=== PATIENT | male | born 1985 | race Caucasian/White ===

== ENCOUNTER 2017-02-12 15:17 | Emergency (ER) | payer SELFPAY ==
[~2017-02-12 15:17] MED LIST: Iopamidol 370 76% 100 ML VIAL ONE
[2017-02-12] MEDS ORDERED: Ondansetron HCl/PF 4 MG/2 ML Vial ONE (15:27)
[2017-02-12] MEDS ORDERED: Ketorolac Tromethamine 30 MG/ML VIAL ONE (15:27)
[2017-02-12 15:42] LABS: #Basophils 0.1 thou/uL (0.0-0.2); #Eosinphils 0.1 thou/uL (0.0-0.7); #Lymphocytes 2.1 thou/uL (1.20-3.40); #Monocytes 0.7 thou/uL (0.11-0.59); #Neutrophils 7.5 thou/uL (1.40-6.50); %Basophils 0.5 % (0.0-1.0); %Eosinophils 1.2 % (0.0-10.0); %Lymphocytes 19.5 % (21.0-51.0); %Monocytes 7.1 % (0.0-10.0); %Neutrophils 71.7 % (42.0-75.0); Mean Corpuscular HGB CONC 35.7 g/dL (32.0-36.0); Mean Corpuscular Hemoglobin 30.7 pg (27.0-31.0); Mean Corpuscular Volume 86.1 fl (80.0-94.0); Mean Platelet Volume 9.4 fL (7.4-10.4); Platelet Count 223 thou/uL (130-400); Red Blood Cell (RBC) Count 4.57 mill/uL (4.70-6.10); White Blood Cell (WBC) Count 10.5 thou/uL (4.8-10.8)
[2017-02-12 16:00] LABS: ALT (SGPT) 11 U/L (8-55); AST (SGOT) 12 U/L (5-34); Albumin 3.6 g/dL (3.5-5.0); Alkaline Phosphatase 51 U/L (40-150); Anion Gap 12 mmol/L (10-20); BUN (Urea Nitrogen) 10 mg/dL (8.9-20.6); Bilirubin, Total 0.6 mg/dL (0.2-1.2); CK (CPK) 126 U/L (30-200); Calc. Creatinine Clearance 0 mL/min (70-130); Calcium 8.7 mg/dL (7.8-10.44); Carbon Dioxide 26 mmol/L (22-29); Chloride 106 mmol/L (98-107); Estimated GFR-MDRD Greater than 90; Globulin 2.5 g/dL (2.4-3.5); Glucose 149 mg/dL (70-105); Lipase 5 U/L (8-78); Protein, Total 6.1 g/dL (6.0-8.3); Sodium 141 mmol/L (136-145)
[2017-02-12 16:02] LABS: CKMB 1.1 ng/mL (0-6.6); Troponin I Less than 0.010 ng/mL (< 0.028)
[2017-02-12 16:20] LABS: Potassium 2.9 mmol/L (3.5-5.1)
[2017-02-12] MEDS ORDERED: Potassium Chloride 20 MEQ/100 ML PREMIX BAG ONE (16:21)
[2017-02-12 17:25] LABS: Bilirubin Negative (Negative); Blood, Urine Small (Negative); Clarity Clear (Clear); Glucose, Urine (Dipstick) Negative (Negative); Leukocyte Negative (Negative); Nitrite Negative (Negative); Protein, Urine (Dipstick) Negative (Neg-Trace); Urobilinogen 0.2 mg/dL (0.2-1.0)
[2017-02-12 17:26] LABS: Bacteria/HPF Rare-Few HPF (None Seen); RBC/HPF 0-3 HPF (0-3); Specific Gravity, Urine Greater/Equal 1.030 (1.005-1.030); Squamous Epithelial 0-3 HPF (0-3); WBC/HPF 0-3 HPF (0-3)
[2017-02-12 17:40] LABS: Amphetamine Detected (NotDetected); Barbiturates Screen Not Detected (NotDetected); Benzodiazepine Screen Not Detected (NotDetected); Cocaine Metabolite Screen Not Detected (NotDetected); Medtox Control Line Valid? VALID (VALID); Methadone Not Detected (NotDetected); Methamphetamine Detected (NotDetected); Opiate Screen Not Detected (NotDetected); Oxycodone Screen Not Detected (NotDetected); Phencyclidine (PCP) Not Detected (NotDetected); THC/Cannabinoid Screen Detected (NotDetected); Tricyclic Screen Not Detected (NotDetected)
--- NOTE | 2017-02-12 19:07 | CT ---
CT ABDOMEN AND PELVIS WITH CONTRAST 02/12/[address] of the abdomen and pelvis was done after injection of IV contrast. Comparison is made with a 10/20/07 noncontrast study. The lung bases are clear. The liver is a little generous in size but no space occupying lesions were seen. The spleen, pancreas, gallbladder, adrenal glands and kidneys showed no acute changes. No gena al masses were seen and there is no hydronephrosis. The right renal pelvis is a little more prominen t than the left, but I can find no firm evidence for ureteral obstruction. No renal or ureteral calc joseph were seen, though the exam being done with contrast could mask tiny ones. The abdominal aorta is normal in caliber. CT of the pelvis showed no pelvic masses, inflammatory changes or fluid collections. A calcification near the urinary bladder on the right side on scan 81 does not appear to be in the ureter. There is a little more fluid in the stomach and duodenum than one often sees, but this is a nonspeci fic finding that may or may not be of significance. IMPRESSION: 1. No findings to explain the patient's right flank pain. 2. Mild increase in fluid in the stomach and duodenum, a nonspecific finding. POS: HOME
== END 2017-02-12 17:41 | disposition home or self-care (01) ==
LOC: BURERS 15:17
DX: E87.6 Hypokalemia (principal); E86.0 Dehydration; F17.210 Nicotine dependence, cigarettes, uncomplicated
CPT/HCPCS: 36415; 74176; 80053; 80306; 81003; 81015; 82553; 83690; 84484; 85025; 93005; 96365; 96375; A4216; J1885; J2405; J3480

== ENCOUNTER 2018-03-30 00:27 | Emergency (ER) | payer SELFPAY ==
[2018-03-30] MEDS ORDERED: cefTRIAXone\\ROCEPHIN 500 MG VIAL ONE (00:51)
[2018-03-30] MEDS ORDERED: Azithromycin 250 MG TAB ONE (00:51)
[2018-03-30 01:03] LABS: Clarity Hazy (Clear)
[2018-03-30 01:04] LABS: Bilirubin Negative (Negative); Blood, Urine Small (Negative); Glucose, Urine (Dipstick) Negative (Negative); Leukocyte Moderate (Negative); Nitrite Negative (Negative); Protein, Urine (Dipstick) 30 mg/dL (Neg-Trace); Specific Gravity, Urine 1.025 (1.002-1.036); Urobilinogen 0.2 mg/dL (0.2-1.0)
[2018-03-30 01:09] LABS: Bacteria/HPF 2+ HPF (None Seen); Squamous Epithelial None Seen HPF (0-3)
[2018-03-31 23:28] LABS: Chlamydia by PCR DETECTED (NotDetected); GC by PCR DETECTED (NotDetected)
== END 2018-03-30 01:00 | disposition home or self-care (01) ==
LOC: BURERS 00:27
DX: A54.00 Gonococcal infection of lower genitourinary tract, unspecified (principal); F17.210 Nicotine dependence, cigarettes, uncomplicated
CPT/HCPCS: 81003; 81015; 87491; 87591; 96372; J0696

== ENCOUNTER 2020-01-29 06:32 | Emergency (ER) | payer SELFPAY ==
[2020-01-29] MEDS ORDERED: predniSONE 20 MG TAB ONE (07:24)
[2020-01-29] MEDS ORDERED: traMADol HCl 50 MG TAB ONE (07:24)
[2020-01-29] MEDS ORDERED: Cephalexin 250 MG CAP ONE (07:24)
[2020-01-29] MEDS ORDERED: Adacel (T-DAP) 0.5 ML SYRINGE ONE (07:24)
[2020-01-29 07:30] LABS: #Basophils 0.1 thou/uL (0.0-0.2); #Eosinphils 0.2 thou/uL (0.0-0.7); #Lymphocytes 3.1 thou/uL (1.20-3.40); #Monocytes 0.8 thou/uL (0.11-0.59); #Neutrophils 6.5 thou/uL (1.40-6.50); %Basophils 1.3 % (0.0-1.0); %Eosinophils 1.9 % (0.0-10.0); %Lymphocytes 28.9 % (21.0-51.0); %Monocytes 7.4 % (0.0-10.0); %Neutrophils 60.5 % (42.0-75.0); Hemoglobin 13.9 g/dL (14.0-18.0); Mean Corpuscular HGB CONC 32.2 g/dL (32.0-36.0); Mean Corpuscular Hemoglobin 30.1 pg (27.0-31.0); Mean Corpuscular Volume 93.5 fL (78.0-98.0); Mean Platelet Volume 10.2 fL (7.4-10.4); Platelet Count 247 thou/uL (130-400); RBC Distribution Width 11.5 % (11.5-14.5); White Blood Cell (WBC) Count 10.8 thou/uL (4.8-10.8)
[2020-01-29 07:33] LABS: Prothrombin Time 13.3 sec (12.0-14.7)
[2020-01-29 07:43] LABS: ALT (SGPT) 12 U/L (8-55); AST (SGOT) 13 U/L (5-34); Albumin 3.9 g/dL (3.5-5.0); Alkaline Phosphatase 55 U/L (40-110); Anion Gap 13 mmol/L (10-20); BUN (Urea Nitrogen) 9 mg/dL (8.9-20.6); Bilirubin, Total 0.3 mg/dL (0.2-1.2); Calc. Creatinine Clearance 0 mL/min (70-130); Calcium 8.9 mg/dL (7.8-10.44); Carbon Dioxide 24 mmol/L (22-29); Chloride 105 mmol/L (98-107); Estimated GFR-MDRD Greater than 90; Globulin 2.6 g/dL (2.4-3.5); Glucose 99 mg/dL (70-105); Potassium 3.4 mmol/L (3.5-5.1); Protein, Total 6.5 g/dL (6.0-8.3); Sodium 139 mmol/L (136-145)
[2020-01-29] MEDS ORDERED: Morphine 4 MG/ML VIAL ONE (07:44)
[2020-01-29] MEDS ORDERED: Morphine 2 MG/ML SYRINGE ONE (07:45)
== END 2020-01-29 08:33 | disposition home or self-care (01) ==
LOC: BURERS 06:32
DX: T63.301A Toxic effect of unspecified spider venom, accidental (unintentional), initial encounter (principal); F17.210 Nicotine dependence, cigarettes, uncomplicated
CPT/HCPCS: 36415; 80053; 85025; 85610; 90471; 90715; 99283; J2270; J7512

== ENCOUNTER 2020-06-14 19:55 | Emergency (ER) | payer SELFPAY ==
--- NOTE | 2020-06-15 07:10 | RAD ---
RIGHT HAND 3 VIEWS: Date: 06/14/2020 No fracture or joint abnormality seen. The bones show no acute changes. IMPRESSION: No significant finding. POS: HOME
== END 2020-06-14 22:26 | disposition home or self-care (01) ==
LOC: BURERS 19:55
DX: M79.89 Other specified soft tissue disorders (principal)

== ENCOUNTER 2020-09-29 18:25 | Emergency (ER) | payer SELFPAY | END 2020-09-29 18:39 | disposition home or self-care (01) | LOC: BURERS 18:25 | DX: Z77.098 Contact with and (suspected) exposure to other hazardous, chiefly nonmedicinal, chemicals (principal); F17.210 Nicotine dependence, cigarettes, uncomplicated | CPT/HCPCS: 99283 ==

== ENCOUNTER 2022-01-24 23:37 | Emergency (ER) | payer SELFPAY | END 2022-01-24 23:55 | disposition home or self-care (01) | LOC: BURERS 23:37 | DX: L73.9 Follicular disorder, unspecified (principal); F17.210 Nicotine dependence, cigarettes, uncomplicated | CPT/HCPCS: 99283 ==

== ENCOUNTER 2022-04-13 17:56 | Emergency (ER) | payer SELFPAY | END 2022-04-13 18:15 | disposition home or self-care (01) | LOC: BURERS 17:56 | DX: T23.221A Burn of second degree of single right finger (nail) except thumb, initial encounter (principal); F17.210 Nicotine dependence, cigarettes, uncomplicated; Z23 Encounter for immunization; X19.XXXA Contact with other heat and hot substances, initial encounter | CPT/HCPCS: 99283 ==

== ENCOUNTER 2025-07-19 18:35 | Emergency (ER) | payer SELFPAY ==
[2025-07-19 19:09] LABS: Glucose, Urine (Dipstick) Negative (Negative); Leukocyte Moderate (Negative); Protein, Urine (Dipstick) 30 mg/dL (Neg-Trace); Specific Gravity, Urine Greater/Equal 1.030 (1.005-1.030)
[2025-07-19 19:10] LABS: CAUTI Indications for Culture Dysuria,urgency,freq; WBC/HPF Greater Than 50 HPF (0-3)
[2025-07-19 19:11] LABS: Bacteria/HPF Rare-Few HPF (None Seen); Urine Culture Reflex Yes Yes
[2025-07-19] MEDS ORDERED: Lidocaine 1% PF 5 ML VIAL ONE (19:29)
[2025-07-19] MEDS ORDERED: cefTRIAXone (ROCEPHIN) 500 MG VIAL ONE (19:30)
[2025-07-20 01:26] LABS: Chlam.trachomatis by PCR,Urine DETECTED (NotDetected); GC N.gonorrhoeae PCR,UrineVOID DETECTED (NotDetected)
== END 2025-07-19 19:54 | disposition home or self-care (01) ==
LOC: BURERS 18:35
DX: N34.1 Nonspecific urethritis (principal); F17.210 Nicotine dependence, cigarettes, uncomplicated
CPT/HCPCS: 81001; 87086; 87491; 87591; 96372; 99283; J0696